=== PATIENT | male | born 1995 | race Caucasian/White ===

== ENCOUNTER 2020-10-21 08:37 | Inpatient (IN) | payer OTHER ==
[2020-10-21 09:56] VITALS: BMI 23.0
[2020-10-21] MEDS ORDERED: NICOTINE POLACRILEX 2 MG GUM BUC PRN (10:27)
[2020-10-21] MEDS ORDERED: METHOCARBAMOL 500 MG TABLET PO PRN (10:27)
[2020-10-21] MEDS ORDERED: IBUPROFEN 400 MG TABLET (FP) PO PRN (10:27)
[2020-10-21] MEDS ORDERED: MAGNESIUM HYDROX 2400MG/30ML ORAL SUSPENSION 30 ML CUP PO PRN (10:27)
[2020-10-21] MEDS ORDERED: MAGNESIUM CITRATE 300 ML BOTTLE PO PRN (10:27)
[2020-10-21] MEDS ORDERED: ONDANSETRON *ODT* 4 MG TABLET SL PRN (10:27)
[2020-10-21] MEDS ORDERED: MENTHOL/PHENOL 1 EACH UD MM PRN (10:27)
[2020-10-21] MEDS ORDERED: BISMUTH SUBSALICYLATE 524 MG/30 ML UD PO PRN (10:27)
[2020-10-21] MEDS ORDERED: ACETAMINOPHEN 325 MG TABLET (FP) PO PRN ×2 (10:27)
[2020-10-21] MEDS ORDERED: MAG HYDROX/AL HYDROX/SIMETH 30 ML UNIT-DOSE CUP PO PRN (10:27)
[2020-10-21] MEDS ORDERED: diazePAM 5 MG TABLET PO PRN (10:27)
[2020-10-21] MEDS ORDERED: diazePAM 5 MG TABLET ONE (11:25)
[2020-10-21] MEDS: diazePAM 5 MG TABLET PO SCH ×3 (11:33→22:17)
[2020-10-21 13:43] LABS: ALBUMIN 4.3 g/dl (3.4-5.0); BLOOD UREA NITROGEN 10.6 mg/dL (7-18); CALCIUM 9.5 mg/dL (8.5-10.1); HEMATOCRIT 51.4 % (35.4-49); HEMOGLOBIN 17.4 GM/dL (11.7-16.9); MCH 30.2 pg (25.7-33.7); MCHC 33.8 g/dl (32.0-35.9); MEAN CELL VOLUME 89.3 fl (80-96); MEAN PLT VOLUME 8.4 fl (7.5-11.1); PLATELET COUNT 241 K/MM3 (134-434); RBC 5.76 M/mm3 (4.00-5.60); RDW 13.7 % (11.9-15.9); WHITE BLOOD COUNT 8.2 K/mm3 (4.0-10.0)
[2020-10-21 13:46] LABS: CREATININE 1.2 mg/dL (0.55-1.3)
[2020-10-21 13:48] LABS: TOT PROT 7.7 g/dl (6.4-8.2)
[2020-10-21 14:40] LABS: HIV INTERPRETATION NEGATIVE (NEGATIVE)
[2020-10-21] MEDS: THIAMINE HCL 100 MG TABLET (FP) PO SCH (22:17)
[2020-10-21] MEDS: MELATONIN 5 MG TABLETS PO SCH (22:17)
[2020-10-21] MEDS: QUEtiapine FUMARATE 50 MG TABLET PO SCH (22:17)
[2020-10-22] MEDS: diazePAM 5 MG TABLET PO SCH ×4 (05:33→22:14)
[2020-10-22] MEDS: NICOTINE 7 MG/24 HOURS TOPICAL PATCH TD SCH (10:18)
[2020-10-22] MEDS: PRENATAL VITAMINS W/ FOLIC ACID TABLET (FP) PO SCH (10:18)
[2020-10-22] MEDS: hydrOXYzine PAMOATE 25 MG CAPSULE (FP) PO PRN (17:35)
[2020-10-22] MEDS: QUEtiapine FUMARATE 50 MG TABLET PO SCH (22:14)
[2020-10-22] MEDS: MELATONIN 5 MG TABLETS PO SCH (22:15)
[2020-10-22] MEDS: THIAMINE HCL 100 MG TABLET (FP) PO SCH (22:15)
[2020-10-23] MEDS: diazePAM 5 MG TABLET PO SCH ×3 (05:11→22:28)
[2020-10-23] MEDS: NICOTINE 7 MG/24 HOURS TOPICAL PATCH TD SCH (10:12)
[2020-10-23] MEDS: PRENATAL VITAMINS W/ FOLIC ACID TABLET (FP) PO SCH (10:12)
[2020-10-23] MEDS: hydrOXYzine PAMOATE 25 MG CAPSULE (FP) PO PRN ×3 (10:13→22:27)
[2020-10-23] MEDS: THIAMINE HCL 100 MG TABLET (FP) PO SCH (22:27)
[2020-10-23] MEDS: MELATONIN 5 MG TABLETS PO SCH (22:30)
[2020-10-23] MEDS: QUEtiapine FUMARATE 50 MG TABLET PO SCH (22:30)
[2020-10-24] MEDS: diazePAM 5 MG TABLET PO SCH ×2 (05:13→17:55)
[2020-10-24] MEDS: hydrOXYzine PAMOATE 25 MG CAPSULE (FP) PO PRN ×2 (10:04→22:14)
[2020-10-24] MEDS: NICOTINE 7 MG/24 HOURS TOPICAL PATCH TD SCH (10:04)
[2020-10-24] MEDS: PRENATAL VITAMINS W/ FOLIC ACID TABLET (FP) PO SCH (10:04)
[2020-10-24 14:07] LABS: SARS-CoV-2 NAA Not Detected (Not Detected)
[2020-10-24 20:20] VITALS: TEMP 97.8
[2020-10-24] MEDS: THIAMINE HCL 100 MG TABLET (FP) PO SCH (22:14)
[2020-10-24] MEDS: QUEtiapine FUMARATE 50 MG TABLET PO SCH (22:14)
[2020-10-24] MEDS: MELATONIN 5 MG TABLETS PO SCH (22:14)
[2020-10-25 05:58] VITALS: BP 120/68; PULSE 70
[2020-10-25] MEDS ORDERED: diazePAM 5 MG TABLET PO ONE (06:00)
== END 2020-10-25 09:45 | disposition home or self-care (01) | DRG 776 ==
LOC: YASAS 08:37 → Y6N 15:32 → Y3N 10-22 10:56 → Y6N 10-22 10:58
PROVIDERS: ADMIT Allergy & Immunology; ATTEND Allergy & Immunology
PROC: HZ2ZZZZ Detoxification Services for Substance Abuse Treatment (ICD-10-PCS; principal; 2020-10-21)
DX: F13.230 Sedative, hypnotic or anxiolytic dependence with withdrawal, uncomplicated (principal); F16.20 Hallucinogen dependence, uncomplicated; F12.20 Cannabis dependence, uncomplicated; F17.210 Nicotine dependence, cigarettes, uncomplicated; F19.24 Other psychoactive substance dependence with psychoactive substance-induced mood disorder; F41.9 Anxiety disorder, unspecified; F32.9 Major depressive disorder, single episode, unspecified; G47.00 Insomnia, unspecified; Z91.19 Patient's noncompliance with other medical treatment and regimen; Z98.890 Other specified postprocedural states
CPT/HCPCS: 36415; 80053; 85027; 86780; 87389; C9803; U0003; U0005